=== PATIENT | male | born 1945 | race Caucasian/White ===

== ENCOUNTER 2018-06-13 23:00 | Inpatient (IN) | payer MEDICARE, OTHER, SELFPAY ==
[2018-06-13 23:11] VITALS: BMI 21.0
--- NOTE | 2018-06-13 23:12 | NURSING ---
Patient arrived on this unit via stretcher from [facility].
[2018-06-14] VITALS: BMI 25.8
[2018-06-14 00:02] VITALS: BP 143/75; PULSE 60; RESP 18; TEMP 37.1; O2SAT 93
[2018-06-14 03:55] VITALS: BP 125/76; PULSE 60
[2018-06-14] MEDS: levoFLOXacin 750 MG Tablet PO (03:55)
[2018-06-14] MEDS: Pantoprazole Sodium 40 MG Tablet PO (03:55)
[2018-06-14] MEDS: Metoprolol Tartrate 25 MG Tablet PO ×2 (03:55→17:39)
[2018-06-14] MEDS: Polyethylene Glycol 3350 17 GM PACKET PO (03:55)
[2018-06-14] MEDS: Amiodarone 200 MG Tablet PO (03:55)
[2018-06-14] MEDS: Clotrimazole 10 MG Troche MUCOUS MEM ×5 (03:56→20:12)
[2018-06-14 07:06] VITALS: PULSE 60; RESP 18; O2SAT 93
[2018-06-14 08:09] LABS: Absolute Lymphocyte Count 0.68 X10^3/ul (0.83-4.51); Absolute Neutrophil Count 6.2 X10^3/uL (2.0-7.7); Basophil# 0.04 X10^3/uL; Basophil% 0.5 % (0-1); Eosinophil# 0.25 X10^3/uL; Eosinophils% 2.9 % (0-5); Hematocrit 32.1 % (40-54); Hemoglobin 10.1 g/dl (13.0-16.5); Lymphocyte # 0.68 X10^3/ul (4.0); Lymphocyte % 7.9 % (19-41); Mean Corp Hgb Conc 31.5 g/gl (32-36); Mean Corpuscular Hgb 32.6 pg (27.0-32.0); Mean Corpuscular Volume 103.5 fL (80-94); Mean Platelet Vol. 10.7 fl (6.2-12.0); Monocyte# 1.44 X10^3/uL; Monocyte% 16.6 % (0-10); Neutrophil # 6.19 X10^3/uL (2.7-7.7); Neutrophil % 71.5 % (47-70); Platelet Count 194 K/mm3 (150-450); RBC Distribution Width CV 17.2 % (11.6-14.6); RBC Distribution Width SD 65.3 fl (35.1-43.9); White Blood Count 8.7 K/mm3 (4.4-11.0)
[2018-06-14 08:11] LABS: Differential Indicated SCAN CRITERIA MET; POSITIVE COUNT NO; POSITIVE DIFFERENTIAL NO; POSITIVE MORPHOLOGY YES
[2018-06-14 08:33] LABS: Anion Gap 8 (5-15); Anisocytosis 1+; BUN 28 mg/dL (7-18); BUN/Creat Ratio 20.7 RATIO (10-20); Calcium,Total 8.5 mg/dL (8.5-10.1); Chloride 104 mmol/L (98-107); Creatinine, Serum 1.35 mg/dL (0.70-1.30); EST Glomerular Filtration Rate 55 mL/min (>60); Est Glom Filt Rate - Afr Amer 66 mL/min (>60); Estimated Creatinine Clearance 44.88 ml/min; Glucose 104 mg/dL (74-106); Hypochromasia RARE; Macrocytosis 1+; Platelet Estimate ADEQUATE (ADEQ); Polychromasia RARE; Potassium 4.6 mmol/L (3.5-5.1); Sodium Level 139 mmol/L (136-145)
--- NOTE | 2018-06-14 10:35 | PCM.HP.STD ---
Problem List (1) Slurred speech Status: Acute (2) Vomiting Status: Acute (3) Gastrointestinal bleeding Status: Chronic (4) Left carotid artery stenosis Status: Chronic (5) Hypertension Status: Chronic (6) Hyperlipidemia Status: Chronic (7) Non-Hodgkin lymphoma Status: Chronic (8) AAA (abdominal aortic aneurysm) Status: Chronic (9) Osteoarthritis Status: Chronic (10) GERD (gastroesophageal reflux disease) Status: Chronic (11) Aortoiliac stenosis Status: Chronic (12) Atrial fibrillation Status: Chronic (13) Chronic kidney disease Status: Chronic (14) Anemia Status: Chronic (15) Encephalopathy Status: Acute (16) ICH (intracerebral hemorrhage) Status: Acute (17) SAH (subarachnoid hemorrhage) Status: Acute (18) IVH (intraventricular hemorrhage) Status: Acute History of Present Illness Date of Admission: 06/13/18 Chief Complaint: Here for rehabilitation, strengthening, prior to disposition determination. The patient is a 72 year old Male with below past medical history significant for peripheral arterial occlusive disease. Patient has history of atrial fibrillation and aortoiliac stenosis. He was on Eliquis and had adverse reaction of gastrointestinal bleeding. He was switched to Xarelto for anticoagulation. His stepsons found him with slurred, garbled speech, vomiting, presented to [facility], transferred to [facility]. He was diagnosed with left frontal intracranial hemorrhage with subarachnoid hemorrhage, intraventricular hemorrhage, mass effect. Change in mental status. EEG shows cortical dysfunction maximal left fronto-cortical region. Diffuse encephalopathy, negative for seizures. 06/06/2018 MRA neck mild left carotid stenosis. 06/07/2018 CT brain acute ICH, IVH, mild left to right midline shift. 06/07/2018 Echo LVSF normal. EF 63% Grade 1 diastolic dysfunction. 06/09/2018 Chest X-ray shows mild bilateral edema/infiltrates. No surgery or interventions performed. 06/13/2018 Admit to TCU with debility, here for rehabilitation, strengthening, prior to disposition determination. Past Medical History Past Medical History (Chronic Problems): Chronic Problems Gastrointestinal bleeding (Chronic) Left carotid artery stenosis (Chronic) Hypertension (Chronic) Hyperlipidemia (Chronic) Non-Hodgkin lymphoma (Chronic) AAA (abdominal aortic aneurysm) (Chronic) Osteoarthritis (Chronic) GERD (gastroesophageal reflux disease) (Chronic) Aortoiliac stenosis (Chronic) Atrial fibrillation (Chronic) Chronic kidney disease (Chronic) Anemia (Chronic) Allergies No Known Allergies Allergy (Verified 06/13/18 23:53) Surgical History: TURP - Radical prostatectomy, Ganglion cyst removal, Mediport placement, left lower extremity stent., - Lives: Alone Smoking Status: Current every day smoker Tobacco Use: Cigarettes Alcohol: Occasional - Daily glass of wine. Drugs: None - *Family History Maternal History Items: Hypertension, Renal Disease Paternal History Items: Hypertension, Stroke Sibling History Items: Hypertension Review of Systems Constitutional: Denies: Chills, Fever, Weight Change HEENT: Denies: Head Aches, Sinus Congestion, Sinus Drainage Cardiovascular: Denies: Chest Pain, Palpitations Respiratory: Denies: Cough, Shortness of breath at rest, Sputum production Gastrointestinal: Denies: Abdominal Pain, Nausea, Vomiting Genitourinary: Denies: Dysuria Musculoskeletal: Denies: Joint Pain, Joint Tenderness Skin: Denies: Rash, Wounds Neurological: Denies: Numbness, Tingling, Focal weakness Psychiatric: Denies: Anxiety, Depression, Homicidal Ideations, Suicidal Ideations Hematologic/ Lymphatic: Denies: Easy Bruising, Easy Bleeding VTE Information - Inpt Only VTE Present on Admission: No VTE Mechan Device Prophylaxis: Knee High MARGARITA Hose VTE Pharm Prophylaxis ordered?: No Reason prophylaxis not ordered:: Medical Contraindication Patient Problems: Active and Suspected Problems Slurred speech (Acute) Vomiting (Acute) Encephalopathy (Acute) ICH (intracerebral hemorrhage) (Acute) SAH (subarachnoid hemorrhage) (Acute) IVH (intraventricular hemorrhage) (Acute) - Physical Exam General: Alert, Oriented x3, Cooperative HEENT: Atraumatic, PERRLA, EOMI, Normocephalic Neck: Supple, No JVD, Negative Carotid Bruits Lungs: Clear to auscultation, Normal air movement Cardiovascular: Regular rate, No murmurs Abdomen: Bowel Sounds Present, Soft, Non Tender Extremities: No edema, Capillary Refill Less than 3 Seconds Skin: No rashes, No breakdown Musculoskeletal: No Tenderness to Palpation of Joints or Extremities Neurological: Cranial nerves II-XII grossly intact Psych/Mental Status: Normal Affect, Appropriate Vital Signs Temp Pulse Resp BP Pulse Ox 98.7 F 60 18 125/76 H 93 06/14/18 00:02 06/14/18 07:06 06/14/18 07:06 06/14/18 03:55 06/14/18 07:06 Oxygen Delivery Method Room Air Weight: 77 kg Body Mass Index (BMI) 25.8 Intake and Output for Last 24 Hours 06/12/18 06/13/18 06/14/18 23:59 23:59 23:59 Intake Total 440 / 440 Balance 440 / 440 Laboratory Tests Past 24 Hrs 06/14/18 06/14/18 07:47 07:47 WBC 8.7 RBC 3.10 L Hgb 10.1 L Hct 32.1 L MCV 103.5 H MCH 32.6 H MCHC 31.5 L RDW 17.2 H RDW Differential 65.3 H Plt Count 194 MPV 10.7 Immature Gran % (Auto) 0.600 Neut % (Auto) 71.5 H Lymph % (Auto) 7.9 L [place] % (Auto) 16.6 H Eos % (Auto) 2.9 Baso % (Auto) 0.5 Absolute Neuts (auto) 6.2 Absolute Lymphs (auto) 0.68 L Total Counted Not Reportable Platelet Estimate ADEQUATE Polychromasia RARE Hypochromasia RARE Anisocytosis 1+ Macrocytosis 1+ Sodium 139 Potassium 4.6 Chloride 104 Carbon Dioxide 27.0 Anion Gap 8 BUN 28 H Creatinine 1.35 H Estim Creat Clear Calc 44.88 Est GFR (MDRD) Af Amer 66 Est GFR (MDRD) Non-Af 55 L BUN/Creatinine Ratio 20.7 H Glucose 104 Calcium 8.5 Assessment/Plan All Active Problems Slurred speech (Acute) Vomiting (Acute) Encephalopathy (Acute) ICH (intracerebral hemorrhage) (Acute) SAH (subarachnoid hemorrhage) (Acute) IVH (intraventricular hemorrhage) (Acute) 72 year old male with below past medical history hospitalized for intracranial hemorrhage, subarachnoid hemorrhage, interventricular hemorrhage, admitted to TCU with debility, here for rehabilitation, strengthening, prior to disposition determination. Debility - PT/OT. Speech - ST. Pain - Tylenol 1000MG Q6H PRN mild pain. Bowel - Miralax 17GM daily, Senna/colace 1 tablet BID, Dulcolax 10MG daily PRN. Pneumonia vaccination - Administer Prevnar 13 and/or Pneumovax 23 as necessary. DVT prophylaxis - Contraindicated due to recent brain bleed. Atrial Fibrillation - Metoprolol 25MG BID, Amiodarone 200MG daily, Aspirin 81MG daily, systemic anticoagulation contraindicated due to brain bleed on DOAC. Hyperlipidemia - Increase Atorvastatin 40MG QHS, patient is a vasculopath. Thrush - Clotrimazole 10MG 5x/day thru 06/15/2018. Healthcare associated pneumonia - Levaquin 750MG daily thru 06/18/2018. Insomnia - Melatonin 3MG QHS. GERD - Pantoprazole 40MG daily. Skin - Silvadene 1% topical daily.
--- NOTE | 2018-06-14 10:43 | HP.PCM_ITS ---
Problem List (1) Slurred speech Status: Acute (2) Vomiting Status: Acute (3) Gastrointestinal bleeding Status: Chronic (4) Left carotid artery stenosis Status: Chronic (5) Hypertension Status: Chronic (6) Hyperlipidemia Status: Chronic (7) Non-Hodgkin lymphoma Status: Chronic (8) AAA (abdominal aortic aneurysm) Status: Chronic (9) Osteoarthritis Status: Chronic (10) GERD (gastroesophageal reflux disease) Status: Chronic (11) Aortoiliac stenosis Status: Chronic (12) Atrial fibrillation Status: Chronic (13) Chronic kidney disease Status: Chronic (14) Anemia Status: Chronic (15) Encephalopathy Status: Acute (16) ICH (intracerebral hemorrhage) Status: Acute (17) SAH (subarachnoid hemorrhage) Status: Acute (18) IVH (intraventricular hemorrhage) Status: Acute History of Present Illness Date of Admission: 06/13/18 Chief Complaint: Here for rehabilitation, strengthening, prior to disposition determination. The patient is a 72 year old Male with below past medical history significant for peripheral arterial occlusive disease. Patient has history of atrial fibrillation and aortoiliac stenosis. He was on Eliquis and had adverse reac tion of gastrointestinal bleeding. He was switched to Xarelto for anticoagulation. His stepsons found him with slurred, garbled speech, vomiting, presented to [facility], transferred to [facility]. He was diagnosed with left frontal intracranial hemorrhage with subarachnoid hemorrhage, intraventricular hemorrhage, mass effect. Change in mental status. EEG shows cortical dysfunction maximal left fronto-cortical region. Diffuse encephalopathy, negative for seizures. 06/06/2018 MRA neck mild left carotid stenosis. 06/07/2018 CT brain acute ICH, IVH, mild left to right midline shift. 06/07/2018 Echo LVSF normal. EF 63% Grade 1 diastolic dysfunction. 06/09/2018 Chest X-ray shows mild bilateral edema/infiltrates. No surgery or interventions performed. 06/13/2018 Admit to TCU with debility, here for rehabilitation, strengthening, prior to disposition determination. Past Medical History Past Medical History (Chronic Problems): Chronic Problems Gastrointestinal bleeding (Chronic) Left carotid artery stenosis (Chronic) Hypertension (Chronic) Hyperlipidemia (Chronic) Non-Hodgkin lymphoma (Chronic) AAA (abdominal aortic aneurysm) (Chronic) Osteoarthritis (Chronic) GERD (gastroesophageal reflux disease) (Chronic) Aortoiliac stenosis (Chronic) Atrial fibrillation (Chronic) Chronic kidney disease (Chronic) Anemia (Chronic) Allergies No Known Allergies Allergy (Verified 06/13/18 23:53) Surgical History: TURP - Radical prostatectomy, Ganglion cyst removal, Mediport placement, left lower extremity stent., - Lives: Alone Smoking Status: Current every day smoker Tobacco Use: Cigarettes Alcohol: Occasional - Daily glass of wine. Drugs: None - *Family History Maternal History Items: Hypertension, Renal Disease Paternal History Items: Hypertension, Stroke Sibling History Items: Hypertension Review of Systems Constitutional: Denies: Chills, Fever, Weight Change HEENT: Denies: Head Aches, Sinus Congestion, Sinus Drainage Cardiovascular: Denies: Chest Pain, Palpitations Respiratory: Denies: Cough, Shortness of breath at rest, Sputum production Gastrointestinal: Denies: Abdominal Pain, Nausea, Vomiting Genitourinary: Denies: Dysuria Musculoskeletal: Denies: Joint Pain, Joint Tenderness Skin: Denies: Rash, Wounds Neurological: Denies: Numbness, Tingling, Focal weakness Psychiatric: Denies: Anxiety, Depression, Homicidal Ideations, Suicidal Ideations Hematologic/ Lymphatic: Denies: Easy Bruising, Easy Bleeding VTE Information - Inpt Only VTE Present on Admission: No VTE Mechan Device Prophylaxis: Knee High MARGARITA Hose VTE Pharm Prophylaxis ordered?: No Reason prophylaxis not ordered:: Medical Contraindication Patient Problems: Active and Suspected Problems Slurred speech (Acute) Vomiting (Acute) Encephalopathy (Acute) ICH (intracerebral hemorrhage) (Acute) SAH (subarachnoid hemorrhage) (Acute) IVH (intraventricular hemorrhage) (Acute) - Physical Exam General: Alert, Oriented x3, Cooperative HEENT: Atraumatic, PERRLA, EOMI, Normocephalic Neck: Supple, No JVD, Negative Carotid Bruits Lungs: Clear to auscultation, Normal air movement Cardiovascular: Regular rate, No murmurs Abdomen: Bowel Sounds Present, Soft, Non Tender Extremities: No edema, Capillary Refill Less than 3 Seconds Skin: No rashes, No breakdown Musculoskeletal: No Tenderness to Palpation of Joints or Extremities Neurological: Cranial nerves II-XII grossly intact Psych/Mental Status: Normal Affect, Appropriate Vital Signs Temp Pulse Resp BP Pulse Ox 98.7 F 60 18 125/76 H 93 06/14/18 00:02 06/14/18 07:06 06/14/18 07:06 06/14/18 03:55 06/14/18 07:06 Oxygen Delivery Method Room Air Weight: 77 kg Body Mass Index (BMI) 25.8 Intake and Output for Last 24 Hours 06/12/18 06/13/18 06/14/18 23:59 23:59 23:59 Intake Total 440 / 440 Balance 440 / 440 Laboratory Tests Past 24 Hrs 06/14/18 06/14/18 07:47 07:47 WBC 8.7 RBC 3.10 L Hgb 10.1 L Hct 32.1 L MCV 103.5 H MCH 32.6 H MCHC 31.5 L RDW 17.2 H RDW Differential 65.3 H Plt Count 194 MPV 10.7 Immature Gran % (Auto) 0.600 Neut % (Auto) 71.5 H Lymph % (Auto) 7.9 L [place] % (Auto) 16.6 H Eos % (Auto) 2.9 Baso % (Auto) 0.5 Absolute Neuts (auto) 6.2 Absolute Lymphs (auto) 0.68 L Total Counted Not Reportable Platelet Estimate ADEQUATE Polychromasia RARE Hypochromasia RARE Anisocytosis 1+ Macrocytosis 1+ Sodium 139 Potassium 4.6 Chloride 104 Carbon Dioxide 27.0 Anion Gap 8 BUN 28 H Creatinine 1.35 H Estim Creat Clear Calc 44.88 Est GFR (MDRD) Af Amer 66 Est GFR (MDRD) Non-Af 55 L BUN/Creatinine Ratio 20.7 H Glucose 104 Calcium 8.5 Assessment/Plan All Active Problems Slurred speech (Acute) Vomiting (Acute) Encephalopathy (Acute) ICH (intracerebral hemorrhage) (Acute) SAH (subarachnoid hemorrhage) (Acute) IVH (intraventricular hemorrhage) (Acute) 72 year old male with below past medical history hospitalized for intracranial hemorrhage, subarachnoid hemorrhage, interventricular hemorrhage, admitted to TCU with debility, here for rehabilitation, strengthening, prior to disposition determination. * Debility - PT/OT. * Speech - ST. * Pain - Tylenol 1000MG Q6H PRN mild pain. * Bowel - Miralax 17GM daily, Senna/colace 1 tablet BID, Dulcolax 10MG daily PRN. * Pneumonia vaccination - Administer Prevnar 13 and/or Pneumovax 23 as necessary. * DVT prophylaxis - Contraindicated due to recent brain bleed. * Atrial Fibrillation - Metoprolol 25MG BID, Amiodarone 200MG daily, Aspirin 81MG daily, systemic anticoagulation contraindicated due to brain bleed on DOAC. * Hyperlipidemia - Increase Atorvastatin 40MG QHS, patient is a vasculopath. * Thrush - Clotrimazole 10MG 5x/day thru 06/15/2018. * Healthcare associated pneumonia - Levaquin 750MG daily thru 06/18/2018. * Insomnia - Melatonin 3MG QHS. * GERD - Pantoprazole 40MG daily. * Skin - Silvadene 1% topical daily.
[2018-06-14] MEDS: Aspirin 81 MG TAB.CHEW PO (11:25)
[2018-06-14] MEDS: Tuberculin,Purif.prot.deriv. 50 TU/ML Vial 5 ML ID (11:27)
--- NOTE | 2018-06-14 12:58 | NURSING ---
Pt pocketing foods and not swallowing effectively. Changed to puree diet d/t risk for aspiration. Speech therapy notified.
--- NOTE | 2018-06-14 13:00 | PCA ---
Patient was taking dentures out at lunch, and pocketing food while eating as well.. Karen MORALES notified
[2018-06-14 16:00] VITALS: BP 140/77; PULSE 54; RESP 18; TEMP 37.2; O2SAT 95
[2018-06-14 17:39] VITALS: BP 140/77; PULSE 54
[2018-06-14] MEDS: Senna/Docusate Sodium 1 Tablet PO (17:43)
[2018-06-14] MEDS: MELATONIN 3 MG TABLET PO (20:12)
[2018-06-14] MEDS: Atorvastatin Calcium 40 MG Tablet PO (20:12)
--- NOTE | 2018-06-14 21:16 | NURSING ---
Pt agitated, becoming increasingly inappropriate towards staff, requiring constant 1:1. Swung fist at this nurses stomach and yelled 'BOOM!', when asked 'whats up [place]?' by PARTNER MANAGER pt responded 'my hopes and my ana m' and later when asked what he liked to do with friends pt said 'piss on them'. Continues to try and stand/ambulate by self without asking or allowing staff assistance. RN aware, continuing to monitor closely at nurses station.
--- NOTE | 2018-06-14 21:45 | NURSING ---
Pt remains restless at nurse's station with 1:1 supervision and emotional support. Dr Junior notified. N.O. for Ativan 0.5 mg daily PRN. Will continue to monitor.
[2018-06-14] MEDS: LORazepam 0.5 MG Tablet PO (22:16)
--- NOTE | 2018-06-15 00:29 | NURSING ---
Pt assisted into bed with assist x 3, bed exit alarm present. Pt repositioned and appears comfortable. Continuing to monitor.
[2018-06-15] MEDS: Senna/Docusate Sodium 1 Tablet PO ×2 (06:40→18:07)
[2018-06-15] MEDS: Polyethylene Glycol 3350 17 GM PACKET PO (06:40)
[2018-06-15 06:41] VITALS: PULSE 66
[2018-06-15] MEDS: Clotrimazole 10 MG Troche MUCOUS MEM ×4 (06:41→18:08)
[2018-06-15] MEDS: Amiodarone 200 MG Tablet PO (06:41)
[2018-06-15] MEDS: Metoprolol Tartrate 25 MG Tablet PO ×2 (06:41→18:08)
[2018-06-15] MEDS: Pantoprazole Sodium 40 MG Tablet PO (06:42)
[2018-06-15] MEDS: Aspirin 81 MG TAB.CHEW PO (08:34)
[2018-06-15 16:00] VITALS: BP 143/73; PULSE 54; RESP 18; TEMP 36.9; O2SAT 94
[2018-06-15 18:08] VITALS: BP 143/73; PULSE 54
[2018-06-15 20:00] VITALS: PULSE 78; RESP 18; O2SAT 94
[2018-06-15] MEDS: Atorvastatin Calcium 40 MG Tablet PO (20:03)
[2018-06-15] MEDS: MELATONIN 3 MG TABLET PO (20:03)
[2018-06-15] MEDS: LORazepam 0.5 MG Tablet PO (20:03)
[2018-06-16 05:41] VITALS: PULSE 78
[2018-06-16] MEDS: Polyethylene Glycol 3350 17 GM PACKET PO (05:41)
[2018-06-16] MEDS: Metoprolol Tartrate 25 MG Tablet PO ×2 (05:41→17:12)
[2018-06-16] MEDS: levoFLOXacin 750 MG Tablet PO (05:41)
[2018-06-16] MEDS: Pantoprazole Sodium 40 MG Tablet PO (05:41)
[2018-06-16] MEDS: Amiodarone 200 MG Tablet PO (05:41)
[2018-06-16] MEDS: Senna/Docusate Sodium 1 Tablet PO ×2 (05:41→17:13)
[2018-06-16] MEDS: Aspirin 81 MG TAB.CHEW PO (07:54)
--- NOTE | 2018-06-16 14:30 | PHA.CONS_ITS ---
<Cristiano Cody D - Last Filed: 06/16/18 14:24> Progress Note - Pharmacy Subjective: TCU Admission Objective: Allergies No Known Allergies Allergy (Verified 06/13/18 23:53) Current Medications Generic Name Dose Route Start Last Admin Trade Name Freq PRN Reason Stop Dose Admin Acetaminophen 1,000 mg 06/14/18 10:58 Tylenol PO Q6H PRN MILD PAIN (1-3/10) Amiodarone HCl 200 mg 06/14/18 06:00 06/16/18 05:41 Cordarone PO 200 mg DAILY JENNA Administration Aspirin 81 mg 06/14/18 08:00 06/16/18 07:54 Aspirin, Baby PO 81 mg DAILY@0800 JENNA Administration Atorvastatin Calcium 40 mg 06/14/18 22:00 06/15/18 20:03 Lipitor PO 40 mg HS JENNA Administration Bisacodyl 10 mg 06/14/18 10:59 Dulcolax PO DAILY PRN Constipation Heparin Sodium (Beef Lung) 50 units 06/14/18 01:05 IV UD PRN HEPARIN FLUSH Levofloxacin 750 mg 06/14/18 06:00 06/16/18 05:41 Levaquin Tablet PO 06/18/18 06:01 750 mg Q48@0600 JENNA Administration Lorazepam 0.5 mg 06/14/18 21:16 06/15/18 20:03 Ativan PO 0.5 mg DAILY PRN PRN Administration AGITATION Melatonin 3 mg 06/14/18 22:00 06/15/18 20:03 Melatonin PO 3 mg QHS JENNA Administration Metoprolol Tartrate 25 mg 06/14/18 06:00 06/16/18 05:41 Lopressor (Beta Kristen) PO 25 mg BID JENNA Administration Pantoprazole Sodium 40 mg 06/14/18 06:00 06/16/18 05:41 Protonix PO 40 mg DAILY JENNA Administration Polyethylene Glycol 17 gm 06/14/18 06:00 06/16/18 05:41 Miralax PO 17 gm DAILY JENNA Administration Senna/Docusate Sodium 1 tablet 06/14/18 18:00 06/16/18 05:41 Senokot-S, Kimmy-Colace PO 1 tablet BID JENNA Administration Silver Sulfadiazine 1 applic 06/14/18 06:00 06/16/18 05:41 Silvadene (Bkc) TOPICAL 06/28/18 06:01 Not Given DAILY JENNA Protocol Sodium Chloride 5 - 15 ml 06/14/18 01:05 IV UD PRN SALINE FLUSH Sodium Chloride 10 ml 06/14/18 01:05 IV UD PRN R PORT FLUSH Tuberculin PPD 5 tu 06/21/18 10:00 Tubersol, Aplisol, Ppd ID 06/21/18 10:01 X1 ONE Problem List Slurred speech (Acute) Vomiting (Acute) Gastrointestinal bleeding (Chronic) Left carotid artery stenosis (Chronic) Hypertension (Chronic) Hyperlipidemia (Chronic) Non-Hodgkin lymphoma (Chronic) AAA (abdominal aortic aneurysm) (Chronic) Osteoarthritis (Chronic) GERD (gastroesophageal reflux disease) (Chronic) Aortoiliac stenosis (Chronic) Atrial fibrillation (Chronic) Chronic kidney disease (Chronic) Anemia (Chronic) Encephalopathy (Acute) ICH (intracerebral hemorrhage) (Acute) SAH (subarachnoid hemorrhage) (Acute) IVH (intraventricular hemorrhage) (Acute) Vital Signs Temp Pulse Resp BP Pulse Ox 98.5 F 78 18 143/73 H 94 06/15/18 16:00 06/16/18 05:41 06/15/18 20:00 06/15/18 18:08 06/15/18 20:00 Oxygen Delivery Method Room Air Weight: 77 kg Body Mass Index (BMI) 25.8 Sodium 139 mmol/L (136-145) 06/14/18 07:47 Potassium 4.6 mmol/L (3.5-5.1) 06/14/18 07:47 Chloride 104 mmol/L (98-107) 06/14/18 07:47 Carbon Dioxide 27.0 mmol/L (21.0-32.0) 06/14/18 07:47 Anion Gap 8 (5-15) 06/14/18 07:47 BUN 28 mg/dL (7-18) H 06/14/18 07:47 Creatinine 1.35 mg/dL (0.70-1.30) H 06/14/18 07:47 Est GFR (MDRD) Af Amer 66 mL/min (>60) 06/14/18 07:47 Est GFR (MDRD) Non-Af 55 mL/min (>60) L 06/14/18 07:47 BUN/Creatinine Ratio 20.7 RATIO (10-20) H 06/14/18 07:47 Glucose 104 mg/dL (74-106) 06/14/18 07:47 Assessment/Plan: 1) Pain APAP for mild pain. Continue to monitor prn medication use, daily pain scores. 2) Afib Amiodarone, metoprolol, ASA. Continue to monitor BP/HR. 3) HLD Atorvastatin at HS. Continue to monitor lipids. 4) ID Levofloxacin until 06/18, renally adjusted. Continue to monitor s/s infection. 5) GI Pantoprazole daily. Continue to monitor for GI distress. 6) Insomnia Melatonin at HS for sleep. Continue to monitor for insomnia. Psychotropic Medications: * 7) Agitation Lorazepam prn. Patient receives nightly around bedtime, consider scheduling or clarify if it's being used for sleep. Continue to monitor prn medication use, for agitation. Unnecessary Medications: Bowel Regimen: 8) Senna/s, PEG, prn bisacodyl. Continue to monitor prn medication use, for constipation/diarrhea. Date of Note:: 06/16/18 - Provider Comments Provider responsibility: Provider responsible to enter orders to implement recommendations <Butch Junior Chi - Last Filed: 06/16/18 18:03> Progress Note - Pharmacy Subjective: [] Objective: Allergies No Known Allergies Allergy (Verified 06/13/18 23:53) Current Medications Generic Name Dose Route Start Last Admin Trade Name Freq PRN Reason Stop Dose Admin Acetaminophen 1,000 mg 06/14/18 10:58 Tylenol PO Q6H PRN MILD PAIN (1-3/10) Amiodarone HCl 200 mg 06/14/18 06:00 06/16/18 05:41 Cordarone PO 200 mg DAILY JENNA Administration Aspirin 81 mg 06/14/18 08:00 06/16/18 07:54 Aspirin, Baby PO 81 mg DAILY@0800 JENNA Administration Atorvastatin Calcium 40 mg 06/14/18 22:00 06/15/18 20:03 Lipitor PO 40 mg HS JENNA Administration Bisacodyl 10 mg 06/14/18 10:59 Dulcolax PO DAILY PRN Constipation Heparin Sodium (Beef Lung) 50 units 06/14/18 01:05 IV UD PRN HEPARIN FLUSH Levofloxacin 750 mg 06/14/18 06:00 06/16/18 05:41 Levaquin Tablet PO 06/18/18 06:01 750 mg Q48@0600 JENNA Administration Lorazepam 0.5 mg 06/14/18 21:16 06/15/18 20:03 Ativan PO 0.5 mg DAILY PRN PRN Administration AGITATION Melatonin 3 mg 06/14/18 22:00 06/15/18 20:03 Melatonin PO 3 mg QHS JENNA Administration Metoprolol Tartrate 25 mg 06/14/18 06:00 06/16/18 17:12 Lopressor (Beta Kristen) PO 25 mg BID JENNA Administration Pantoprazole Sodium 40 mg 06/14/18 06:00 06/16/18 05:41 Protonix PO 40 mg DAILY JENNA Administration Polyethylene Glycol 17 gm 06/14/18 06:00 06/16/18 05:41 Miralax PO 17 gm DAILY JENNA Administration Senna/Docusate Sodium 1 tablet 06/14/18 18:00 06/16/18 17:13 Senokot-S, Kimmy-Colace PO 1 tablet BID JENNA Administration Silver Sulfadiazine 1 applic 06/14/18 06:00 06/16/18 05:41 Silvadene (Bkc) TOPICAL 06/28/18 06:01 Not Given DAILY [facility] Protocol Sodium Chloride 5 - 15 ml 06/14/18 01:05 IV UD PRN SALINE FLUSH Sodium Chloride 10 ml 06/14/18 01:05 IV UD PRN R PORT FLUSH Tuberculin PPD 5 tu 06/21/18 10:00 Tubersol, Aplisol, Ppd ID 06/21/18 10:01 X1 ONE Problem List Slurred speech (Acute) Vomiting (Acute) Gastrointestinal bleeding (Chronic) Left carotid artery stenosis (Chronic) Hypertension (Chronic) Hyperlipidemia (Chronic) Non-Hodgkin lymphoma (Chronic) AAA (abdominal aortic aneurysm) (Chronic) Osteoarthritis (Chronic) GERD (gastroesophageal reflux disease) (Chronic) Aortoiliac stenosis (Chronic) Atrial fibrillation (Chronic) Chronic kidney disease (Chronic) Anemia (Chronic) Encephalopathy (Acute) ICH (intracerebral hemorrhage) (Acute) SAH (subarachnoid hemorrhage) (Acute) IVH (intraventricular hemorrhage) (Acute) Vital Signs Temp Pulse Resp BP Pulse Ox 97.1 F L 55 L 16 123/54 H 93 06/16/18 15:34 06/16/18 17:12 06/16/18 15:34 06/16/18 17:12 06/16/18 15:34 Oxygen Delivery Method Room Air Weight: 77 kg Body Mass Index (BMI) 25.8 Sodium 139 mmol/L (136-145) 06/14/18 07:47 Potassium 4.6 mmol/L (3.5-5.1) 06/14/18 07:47 Chloride 104 mmol/L (98-107) 06/14/18 07:47 Carbon Dioxide 27.0 mmol/L (21.0-32.0) 06/14/18 07:47 Anion Gap 8 (5-15) 06/14/18 07:47 BUN 28 mg/dL (7-18) H 06/14/18 07:47 Creatinine 1.35 mg/dL (0.70-1.30) H 06/14/18 07:47 Est GFR (MDRD) Af Amer 66 mL/min (>60) 06/14/18 07:47 Est GFR (MDRD) Non-Af 55 mL/min (>60) L 06/14/18 07:47 BUN/Creatinine Ratio 20.7 RATIO (10-20) H 06/14/18 07:47 Glucose 104 mg/dL (74-106) 06/14/18 07:47 Assessment/Plan: Psychotropic Medications: Unnecessary Medications: Bowel Regimen: - Provider Comments Provider responsibility: Provider responsible to enter orders to implement recommendations Provider Comments to Recommendations by Pharmacy: Agree
[2018-06-16 15:34] VITALS: BP 123/54; PULSE 55; RESP 16; TEMP 36.2; O2SAT 93
[2018-06-16 17:12] VITALS: BP 123/54; PULSE 55
[2018-06-16 21:00] VITALS: PULSE 58; RESP 17; O2SAT 96
[2018-06-16] MEDS: MELATONIN 3 MG TABLET PO (21:07)
[2018-06-16] MEDS: Atorvastatin Calcium 40 MG Tablet PO (21:07)
[2018-06-17 04:50] VITALS: BP 163/82; PULSE 70
[2018-06-17] MEDS: Amiodarone 200 MG Tablet PO (04:50)
[2018-06-17] MEDS: Senna/Docusate Sodium 1 Tablet PO ×2 (04:50→17:17)
[2018-06-17] MEDS: Pantoprazole Sodium 40 MG Tablet PO (04:50)
[2018-06-17] MEDS: Metoprolol Tartrate 25 MG Tablet PO ×2 (04:50→17:17)
[2018-06-17] MEDS: Polyethylene Glycol 3350 17 GM PACKET PO (04:50)
[2018-06-17 06:30] VITALS: PULSE 70; RESP 16; O2SAT 95
[2018-06-17] MEDS: Aspirin 81 MG TAB.CHEW PO (09:19)
[2018-06-17 15:55] VITALS: BP 144/71; PULSE 60; RESP 18; TEMP 37.1; O2SAT 96
[2018-06-17 17:17] VITALS: BP 144/71; PULSE 60
[2018-06-17] MEDS: Atorvastatin Calcium 40 MG Tablet PO (20:50)
[2018-06-17] MEDS: MELATONIN 3 MG TABLET PO (20:51)
[2018-06-18 04:56] VITALS: BP 158/80; PULSE 62
[2018-06-18] MEDS: Metoprolol Tartrate 25 MG Tablet PO ×2 (04:56→16:51)
[2018-06-18] MEDS: Amiodarone 200 MG Tablet PO (04:56)
[2018-06-18] MEDS: levoFLOXacin 750 MG Tablet PO (04:56)
[2018-06-18] MEDS: Senna/Docusate Sodium 1 Tablet PO ×2 (04:57→16:52)
[2018-06-18] MEDS: Polyethylene Glycol 3350 17 GM PACKET PO (04:57)
[2018-06-18] MEDS: Pantoprazole Sodium 40 MG Tablet PO (04:57)
[2018-06-18] MEDS: Aspirin 81 MG TAB.CHEW PO (08:31)
--- NOTE | 2018-06-18 10:02 | CASEMGMT ---
Plan of care meeting held. Resident present as well as resident family. No discharge date set at this time. Resident to continue with further care and treatment on the Transitional Care Unit. Team currently recommending for resident to have 24hr care at time of discharge whether that would be in the home or in a facility. Resident family unsure of discharge plan at this time. This older adult social work specialist providing resident family with list of private duty aides, medical alert list and of assisted living/fdc home. Support given. Will continue to follow. COLETTE Hood
[2018-06-18 16:00] VITALS: BP 146/90; PULSE 60; RESP 18; TEMP 36.5; O2SAT 98
[2018-06-18 16:51] VITALS: PULSE 60
[2018-06-18 20:00] VITALS: PULSE 74; RESP 18; O2SAT 94
[2018-06-18] MEDS: MELATONIN 3 MG TABLET PO (20:18)
[2018-06-18] MEDS: Atorvastatin Calcium 40 MG Tablet PO (20:18)
[2018-06-19 05:07] VITALS: BP 143/77; PULSE 74
[2018-06-19] MEDS: Senna/Docusate Sodium 1 Tablet PO ×2 (05:07→16:55)
[2018-06-19] MEDS: Pantoprazole Sodium 40 MG Tablet PO (05:07)
[2018-06-19] MEDS: Metoprolol Tartrate 25 MG Tablet PO ×2 (05:07→16:55)
[2018-06-19] MEDS: Amiodarone 200 MG Tablet PO (05:09)
[2018-06-19] MEDS: Polyethylene Glycol 3350 17 GM PACKET PO (05:09)
[2018-06-19] MEDS: Aspirin 81 MG TAB.CHEW PO (08:01)
[2018-06-19 10:00] VITALS: PULSE 63; RESP 16; O2SAT 95
[2018-06-19] MEDS: LORazepam 0.5 MG Tablet PO (16:54)
[2018-06-19 16:55] VITALS: BP 140/70; PULSE 62
[2018-06-19] MEDS: MELATONIN 3 MG TABLET PO (20:58)
[2018-06-19] MEDS: Atorvastatin Calcium 40 MG Tablet PO (20:58)
[2018-06-19] MEDS: Menthol/Lanolin/Calamine/Znox 113 GM Tube 1 APPLIC TOPICAL (20:59)
[2018-06-20 05:24] VITALS: PULSE 63
[2018-06-20] MEDS: Metoprolol Tartrate 25 MG Tablet PO ×2 (05:24→17:05)
[2018-06-20] MEDS: Pantoprazole Sodium 40 MG Tablet PO (05:25)
[2018-06-20] MEDS: Amiodarone 200 MG Tablet PO (05:25)
[2018-06-20] MEDS: Senna/Docusate Sodium 1 Tablet PO ×2 (05:25→17:06)
[2018-06-20] MEDS: Polyethylene Glycol 3350 17 GM PACKET PO (05:30)
[2018-06-20] MEDS: Menthol/Lanolin/Calamine/Znox 113 GM Tube 1 APPLIC TOPICAL ×2 (05:30→20:55)
[2018-06-20] MEDS: Bisacodyl 5 MG Tablet 10 MG PO (07:58)
[2018-06-20] MEDS: Aspirin 81 MG TAB.CHEW PO (07:58)
--- NOTE | 2018-06-20 12:40 | CASEMGMT ---
Addendum entered by Malorie Valdovinos 06/20/18 14:12: Reviewed and approved social work student MDS documentation. COLETTE Hood Original Note: Brief interview for mental status (BIMS) and mood (PHQ-9) completed on this day. BIMS score 11/15. PHQ-9 score 06/29. Nayeli Paredes social work student
[2018-06-20 16:00] VITALS: BP 145/67; PULSE 60; RESP 20; TEMP 36.8; O2SAT 97
[2018-06-20 17:05] VITALS: BP 145/67; PULSE 60
[2018-06-20] MEDS: LORazepam 0.5 MG Tablet PO (17:56)
--- NOTE | 2018-06-20 18:23 | NURSING ---
NO for soap suds enema x1
[2018-06-20] MEDS: Magnesium Citrate 300 ML PO (20:33)
[2018-06-20] MEDS: MELATONIN 3 MG TABLET PO (20:56)
[2018-06-20] MEDS: Atorvastatin Calcium 40 MG Tablet PO (20:56)
--- NOTE | 2018-06-21 01:02 | NURSING ---
NO for soap suds enema x1 d/c'd and change to mag citrate x1. Order administered as ordered pt took all of it without any concerns during this time.
[2018-06-21] MEDS: Pantoprazole Sodium 40 MG Tablet PO (06:41)
[2018-06-21] MEDS: Amiodarone 200 MG Tablet PO (06:41)
[2018-06-21 06:42] VITALS: PULSE 62
[2018-06-21] MEDS: Metoprolol Tartrate 25 MG Tablet PO ×2 (06:42→16:48)
[2018-06-21] MEDS: Menthol/Lanolin/Calamine/Znox 113 GM Tube 1 APPLIC TOPICAL ×2 (06:43→20:54)
[2018-06-21 06:57] LABS: Absolute Lymphocyte Count 0.93 X10^3/ul (0.83-4.51); Absolute Neutrophil Count 3.1 X10^3/uL (2.0-7.7); Basophil# 0.09 X10^3/uL; Basophil% 1.7 % (0-1); Eosinophil# 0.15 X10^3/uL; Eosinophils% 2.8 % (0-5); Hematocrit 38.8 % (40-54); Hemoglobin 12.6 g/dl (13.0-16.5); Lymphocyte # 0.93 X10^3/ul (4.0); Lymphocyte % 17.1 % (19-41); Mean Corp Hgb Conc 32.5 g/gl (32-36); Mean Corpuscular Hgb 33.8 pg (27.0-32.0); Monocyte# 1.17 X10^3/uL; Monocyte% 21.5 % (0-10); Neutrophil # 3.09 X10^3/uL (2.7-7.7); Neutrophil % 56.5 % (47-70); POSITIVE COUNT NO; POSITIVE DIFFERENTIAL NO; POSITIVE MORPHOLOGY NO; Platelet Count 293 K/mm3 (150-450); RBC Distribution Width CV 15.3 % (11.6-14.6); RBC Distribution Width SD 55.1 fl (35.1-43.9); Red Blood Count 3.73 M/mm3 (4.6-6.2); White Blood Count 5.5 K/mm3 (4.4-11.0)
[2018-06-21 07:09] LABS: Anion Gap 8 (5-15); BUN 35 mg/dL (7-18); BUN/Creat Ratio 16.1 RATIO (10-20); Chloride 105 mmol/L (98-107); Creatinine, Serum 2.18 mg/dL (0.70-1.30); EST Glomerular Filtration Rate 32 mL/min (>60); Est Glom Filt Rate - Afr Amer 38 mL/min (>60); Estimated Creatinine Clearance 26.43 ml/min; Glucose 120 mg/dL (74-106); Sodium Level 139 mmol/L (136-145)
[2018-06-21] MEDS: Aspirin 81 MG TAB.CHEW PO (07:55)
[2018-06-21] MEDS: Tuberculin,Purif.prot.deriv. 50 TU/ML Vial 5 ML ID (11:17)
[2018-06-21] MEDS: 0.9% Normal Saline 1,000 ML 60 ML IV (13:09)
--- NOTE | 2018-06-21 13:23 | NURSING ---
Dr Junior reviewed labs, new order for normal saline @ 60cc/hr.
[2018-06-21 15:31] VITALS: BP 121/99; PULSE 55; RESP 16; TEMP 36.3; O2SAT 95
[2018-06-21 16:48] VITALS: BP 121/99; PULSE 62
[2018-06-21] MEDS: Senna/Docusate Sodium 1 Tablet PO (16:48)
[2018-06-21] MEDS: Atorvastatin Calcium 40 MG Tablet PO (20:47)
[2018-06-21] MEDS: MELATONIN 3 MG TABLET PO (20:47)
[2018-06-21 21:00] VITALS: PULSE 55; RESP 18; O2SAT 97
[2018-06-22] MEDS: Menthol/Lanolin/Calamine/Znox 113 GM Tube 1 APPLIC TOPICAL ×2 (05:42→19:57)
[2018-06-22] MEDS: Senna/Docusate Sodium 1 Tablet PO ×2 (05:43→16:52)
[2018-06-22] MEDS: Polyethylene Glycol 3350 17 GM PACKET PO (05:43)
[2018-06-22 05:44] VITALS: BP 128/71; PULSE 56
[2018-06-22] MEDS: Metoprolol Tartrate 25 MG Tablet PO ×2 (05:44→16:52)
[2018-06-22] MEDS: Amiodarone 200 MG Tablet PO (05:44)
[2018-06-22] MEDS: Pantoprazole Sodium 40 MG Tablet PO (05:44)
[2018-06-22] MEDS: 0.9% Normal Saline 1,000 ML 60 ML IV (05:59)
[2018-06-22 06:30] VITALS: PULSE 56; RESP 16; O2SAT 95
[2018-06-22 06:59] LABS: Anion Gap 8 (5-15); BUN 34 mg/dL (7-18); BUN/Creat Ratio 17.4 RATIO (10-20); Calcium,Total 8.5 mg/dL (8.5-10.1); Chloride 106 mmol/L (98-107); Creatinine, Serum 1.95 mg/dL (0.70-1.30); EST Glomerular Filtration Rate 36 mL/min (>60); Est Glom Filt Rate - Afr Amer 43 mL/min (>60); Estimated Creatinine Clearance 29.55 ml/min; Glucose 85 mg/dL (74-106); Potassium 4.9 mmol/L (3.5-5.1); Sodium Level 141 mmol/L (136-145)
[2018-06-22] MEDS: Aspirin 81 MG TAB.CHEW PO (08:06)
--- NOTE | 2018-06-22 12:55 | NURSING ---
Addendum entered by Isa Sánchez 06/22/18 13:53: Dr Junior updated, new order to DC IVF and encourage PO fluids Original Note: This nurse was notified by lens grinding machine operator that Pt IV was leaking. This nurse observed Pt IV catheter pulled out and Pt had disconnected the IV line. Catheter intact. Isa MORALES aware
[2018-06-22 15:22] VITALS: BP 132/91; PULSE 52; RESP 16; TEMP 36.5; O2SAT 95
[2018-06-22 16:52] VITALS: BP 132/91; PULSE 52
[2018-06-22] MEDS: MELATONIN 3 MG TABLET PO (19:57)
[2018-06-22] MEDS: Atorvastatin Calcium 40 MG Tablet PO (19:58)
[2018-06-23] MEDS: Menthol/Lanolin/Calamine/Znox 113 GM Tube 1 APPLIC TOPICAL ×2 (05:28→20:18)
[2018-06-23 05:29] VITALS: BP 139/71; PULSE 56
[2018-06-23] MEDS: Metoprolol Tartrate 25 MG Tablet PO ×2 (05:29→18:17)
[2018-06-23] MEDS: Amiodarone 200 MG Tablet PO (05:29)
[2018-06-23] MEDS: Senna/Docusate Sodium 1 Tablet PO ×2 (05:29→18:16)
[2018-06-23] MEDS: Polyethylene Glycol 3350 17 GM PACKET PO (05:29)
[2018-06-23] MEDS: Pantoprazole Sodium 40 MG Tablet PO (05:29)
[2018-06-23] MEDS: Aspirin 81 MG TAB.CHEW PO (07:50)
[2018-06-23 14:53] VITALS: PULSE 56; RESP 16; O2SAT 96
[2018-06-23 15:31] VITALS: BP 139/65; PULSE 55; RESP 18; TEMP 36.2; O2SAT 98
[2018-06-23] MEDS: LORazepam 0.5 MG Tablet PO (16:29)
--- NOTE | 2018-06-23 17:17 | NURSING ---
THIS NURSE HEARD ALARM GOING OFF, CAME OUT OF ROOM AND PT WAS AT THE ELEVATORS WAITING TO GET ON. ASKED PT WHERE HE WAS GOING PT STATED HE WAS GOING HOME. DOORS OPENED AND PT TRIED TO GET ON. THIS NURSE HELD ON TO PT GAIT BELT AND ANA CAME OUT AND WALKED PT DOWN GREEN AND THEN TRYED TO GET OUT DOUBLE DOORS. PT WALKED INTO DINING AREA AND SAT DOWN. PT REFUSING TO GO BACK TO ROOM. ANA CALLED SECURITY. REPORTED TO CARMEN GONSALVES
[2018-06-23 18:17] VITALS: BP 139/65; PULSE 58
[2018-06-23 18:20] VITALS: PULSE 58
[2018-06-23] MEDS: Atorvastatin Calcium 40 MG Tablet PO (20:13)
[2018-06-23] MEDS: MELATONIN 3 MG TABLET PO (20:14)
[2018-06-24] MEDS: Menthol/Lanolin/Calamine/Znox 113 GM Tube 1 APPLIC TOPICAL ×2 (05:44→20:33)
[2018-06-24] MEDS: Polyethylene Glycol 3350 17 GM PACKET PO (05:44)
[2018-06-24] MEDS: Pantoprazole Sodium 40 MG Tablet PO (05:44)
[2018-06-24] MEDS: Bisacodyl 5 MG Tablet 10 MG PO (05:46)
[2018-06-24] MEDS: Amiodarone 200 MG Tablet PO (05:46)
[2018-06-24] MEDS: Senna/Docusate Sodium 1 Tablet PO ×2 (05:47→17:41)
[2018-06-24 05:50] VITALS: BP 142/79; PULSE 55; RESP 16
[2018-06-24 08:13] VITALS: BP 139/79; PULSE 61
[2018-06-24] MEDS: Aspirin 81 MG TAB.CHEW PO (08:13)
[2018-06-24] MEDS: Metoprolol Tartrate 25 MG Tablet PO ×2 (08:13→17:41)
[2018-06-24 08:14] VITALS: BP 139/79; PULSE 61
--- NOTE | 2018-06-24 09:53 | CPS ---
MANAGER ANALYSIS called, RT responded EAC billed
--- NOTE | 2018-06-24 10:49 | NURSING ---
Addendum entered by Karen Hogan 06/24/18 15:21: correction: PACKAGE SORTER and METHODS ANALYST DATA PROCESSING, not HUMAN CAPITAL CONSULTANT. Original Note: Pt found unresponsive in main room near nurses station by HUMAN CAPITAL CONSULTANT and PACKAGE SORTER. Leaning to one side and not responding verbally, eyes fixated. SOIL FERTILITY EXTENSION SPECIALIST called. BP 153/90, 88, rr 8, 74% RA. Oxygen applied via NRB. Patient had large emesis and began to become more responsive. suctioned by RT. Patient became more alert and responsive to verbal stimuli. Vitals 152/98, 58, 16, 99% on NRB. IV inserted into LAC. Patient monitored, continued to stay alert and oxygen saturations maintained. Dr. Junior updated, NO for CXR tomorrow morning and to continue to monitor patient. Patient's POAEliecer, updated.
[2018-06-24] MEDS: LORazepam 0.5 MG Tablet PO (15:39)
[2018-06-24 15:58] VITALS: BP 150/80; PULSE 59; RESP 18; TEMP 36.9; O2SAT 94
[2018-06-24 17:41] VITALS: BP 150/80; PULSE 59
[2018-06-24 19:45] VITALS: PULSE 74; RESP 18; O2SAT 94
[2018-06-24] MEDS: MELATONIN 3 MG TABLET PO (20:33)
[2018-06-24] MEDS: Atorvastatin Calcium 40 MG Tablet PO (20:33)
[2018-06-25 05:20] VITALS: PULSE 64
[2018-06-25] MEDS: Menthol/Lanolin/Calamine/Znox 113 GM Tube 1 APPLIC TOPICAL ×2 (05:20→20:25)
[2018-06-25] MEDS: Senna/Docusate Sodium 1 Tablet PO ×2 (05:20→18:09)
[2018-06-25] MEDS: Pantoprazole Sodium 40 MG Tablet PO (05:20)
[2018-06-25] MEDS: Metoprolol Tartrate 25 MG Tablet PO ×2 (05:20→18:29)
[2018-06-25] MEDS: Amiodarone 200 MG Tablet PO (05:20)
[2018-06-25] MEDS: Polyethylene Glycol 3350 17 GM PACKET PO (05:20)
--- NOTE | 2018-06-25 06:00 | RAD_ITS ---
HISTORY: COUGHRRT YESTERDAY WITH EMESIS, R/O ASPIRATION EXAM:XR Chest 2 Views: COMPARISON: None FINDINGS: Left lower lobe asymmetric infiltrate compatible with pneumonia. Normal heart size. Small calcified pleural plaques are suggested at the mid left hemithorax. Probable background emphysema. Right jugular Port-A-Cath in place with the catheter tip in the region of the superior vena cava. No pneumothorax. Atherosclerotic thoracic aorta. Senescent changes of the dorsal spine. RAD/Chest PA and Lateral IMPRESSION: 1. Left lower lobe infiltrate compatible with pneumonia. Infiltrate should be followed to radiographic resolution. 2. Probable background emphysema. at 0719 Reported and signed by: Seng Noyola MD Electronically Signed: Seng Noyola, at 7:18 EST Tel , Service support ,
--- NOTE | 2018-06-25 08:33 | NURSING ---
Dr. Junior reviewed CXR, NO for cefdinir 300mg PO l90etmtz x 3 days
[2018-06-25] MEDS: Aspirin 81 MG TAB.CHEW PO (09:07)
[2018-06-25] MEDS: Cefdinir 300 MG Capsule PO ×2 (10:42→18:09)
[2018-06-25 15:13] VITALS: BP 141/76; PULSE 54; RESP 16; TEMP 36.8; O2SAT 95
--- NOTE | 2018-06-25 16:25 | CHAPLAIN ---
Type of Pastoral Visit _x__ Initial Visit ___ Follow-up Visit ___ On-call Visit ___ General Patient Visit ___ Spiritual Assessment ___ Family Conference ___ Bereavement ___ Rapid Response ___ Code Blue ___ Other (describe below) Pastoral Care Referral From ___ Patient ___ Family ___ Nurse ___ Physician ___ General Labor ___ Rubber Turner _x__ Other (describe below) Sacrament/Intervention _x__ Active listening ___ Anointing ___ Yarsani ___ Bereavement ___ Communion ___ Nicole exploration ___ ___ Life review ___ Prayer ___ Reconciliation ___ Sacrament of Sick ___ Supportive presence ___ Wedding ___ Other (describe below) Pastoral Comments talked with patient around table in TCU
[2018-06-25 18:29] VITALS: BP 180/87; PULSE 89
[2018-06-25] MEDS: Acetaminophen 500 MG Tablet 1000 MG PO (18:30)
[2018-06-25 18:37] VITALS: TEMP 38.7
[2018-06-25] MEDS: MELATONIN 3 MG TABLET PO (20:26)
[2018-06-25] MEDS: Atorvastatin Calcium 40 MG Tablet PO (20:26)
--- NOTE | 2018-06-25 20:28 | NURSING ---
Pt took one sip of water before becoming agitated with this nurse for trying to get pt to drink. Pt educated on importance of maintaining hydration, especially when not feeling well. RN aware, will continue to offer fluids.
[2018-06-26] MEDS: Menthol/Lanolin/Calamine/Znox 113 GM Tube 1 APPLIC TOPICAL ×2 (05:32→19:44)
[2018-06-26 05:33] VITALS: PULSE 77
[2018-06-26] MEDS: Pantoprazole Sodium 40 MG Tablet PO (05:33)
[2018-06-26] MEDS: Metoprolol Tartrate 25 MG Tablet PO ×2 (05:33→16:56)
[2018-06-26] MEDS: Amiodarone 200 MG Tablet PO (05:33)
[2018-06-26] MEDS: Senna/Docusate Sodium 1 Tablet PO ×2 (05:33→16:55)
[2018-06-26] MEDS: Cefdinir 300 MG Capsule PO ×2 (05:33→16:55)
--- NOTE | 2018-06-26 05:59 | NURSING ---
Pt alert, pleasant this morning. Drank 160cc water with am meds. Repositioned for comfort, continuing to monitor.
[2018-06-26] MEDS: Aspirin 81 MG TAB.CHEW PO (08:01)
--- NOTE | 2018-06-26 12:57 | MDS.RN ---
Information for the mds was obtained from review of the clinical record, interview of resident, staff, and direct observation of resident's care.
--- NOTE | 2018-06-26 13:21 | MDS.RN ---
Pain interview for ja 06/27/18 completed.
[2018-06-26 15:49] VITALS: BP 91/55; PULSE 68; RESP 14; TEMP 37; O2SAT 93
[2018-06-26 16:56] VITALS: BP 91/55; PULSE 68
--- NOTE | 2018-06-26 17:04 | NURSING ---
IV discontinued at this time, Catheter intact, site intact and secured with gauze and tape. Isa MORALES aware
[2018-06-26] MEDS: MELATONIN 3 MG TABLET PO (19:43)
[2018-06-26] MEDS: Atorvastatin Calcium 40 MG Tablet PO (19:43)
[2018-06-26 19:57] VITALS: PULSE 66
[2018-06-26] MEDS: Acetaminophen 500 MG Tablet 1000 MG PO (22:31)
[2018-06-27] VITALS (7 sets, daily range): BP systolic 111–199; BP diastolic 58–95; PULSE 57–84; RESP 16–22; TEMP 36.9–38.2; O2SAT 90–91
[2018-06-27] MEDS: Amiodarone 200 MG Tablet PO (06:25)
[2018-06-27] MEDS: Senna/Docusate Sodium 1 Tablet PO ×2 (06:25→17:17)
[2018-06-27] MEDS: Polyethylene Glycol 3350 17 GM PACKET PO (06:25)
[2018-06-27] MEDS: Cefdinir 300 MG Capsule PO ×2 (06:26→17:17)
[2018-06-27] MEDS: Pantoprazole Sodium 40 MG Tablet PO (06:26)
[2018-06-27] MEDS: Menthol/Lanolin/Calamine/Znox 113 GM Tube 1 APPLIC TOPICAL ×2 (06:29→20:15)
[2018-06-27] MEDS: Aspirin 81 MG TAB.CHEW PO (07:55)
--- NOTE | 2018-06-27 09:11 | NURSING ---
Dr Junior updated on low bp 111/64 HR 57. Lopressor held. no new orders.
--- NOTE | 2018-06-27 13:20 | CASEMGMT ---
Addendum entered by Malorie Valdovinos 06/27/18 15:20: Reviewed and approved NECK BAND OPERATOR student MDS documentation. COLETTE Hood Original Note: Brief interview for mental status (BIMS) and mood (PHQ-9) completed on this day. BIMS score 01/15. PHQ-9 score 09/27. [facility]
[2018-06-27] MEDS: Metoprolol Tartrate 25 MG Tablet PO (17:17)
[2018-06-27] MEDS: Atorvastatin Calcium 40 MG Tablet PO (20:15)
[2018-06-27] MEDS: MELATONIN 3 MG TABLET PO (20:16)
[2018-06-27] MEDS: Acetaminophen 500 MG Tablet 1000 MG PO (20:22)
--- NOTE | 2018-06-27 21:00 | RAD_ITS ---
STUDY: X-RAY CHEST REASON FOR EXAM: Male, 72 years old. Fever TECHNIQUE: Frontal and lateral views COMPARISON: June 25, 2018 FINDINGS: Right venous port with tip in the proximal SVC level. The lungs are expanded. Persistent left retrocardiac infiltrate with slight interval increase. Normal size heart. Normal mediastinum and shreyas. Normal visualized pulmonary arteries. Normal visualized aortic arch and descending thoracic aorta. Degenerative changes of the thoracic spine. Normal visualized ribs, clavicles, and shoulders. There is no demonstrated abnormality of the visualized soft tissue structures of the upper abdomen. RAD/Chest PA and Lateral IMPRESSION: Persistent left retrocardiac infiltrate. Electronically Signed: Yariel Rios DO at 21:59 EST Tel [phone], Service support ,
--- NOTE | 2018-06-27 22:59 | NURSING ---
APPLICATIONS SALES REPRESENTATIVE reported to nurse pt shaky B/P 199/95 HR reg 80 oral temp 100.7 Resp 22 91% RA. Pt reported to be very weak and lethargic. Tylenol provided. Crackles noted posterior. Dr Junior aware. N.O. Stat CXR, resp panel, X1 Lopressor. B/P recheck for lopressor 122/65 held, HR 73 Resp 20 89% RA O2 applied 2L temp 98.9. Dr Junior notified N.O. D/C Cefdinir start Rocephin and Azithromycin X7 days. Will continue to monitor and asses.
[2018-06-28] MEDS: 0.9% NaCl IVPB Med Flush (250 mL) 15 ML IV (00:12)
[2018-06-28] MEDS: Ceftriaxone 1 GM/50 ML BAG IV ×2 (00:12→21:44)
[2018-06-28] MEDS: Menthol/Lanolin/Calamine/Znox 113 GM Tube 1 APPLIC TOPICAL ×2 (06:11→19:59)
[2018-06-28] MEDS: Amiodarone 200 MG Tablet PO (06:13)
[2018-06-28 06:14] VITALS: BP 120/70; PULSE 63
[2018-06-28] MEDS: Senna/Docusate Sodium 1 Tablet PO ×2 (06:14→17:54)
[2018-06-28] MEDS: Metoprolol Tartrate 25 MG Tablet PO ×2 (06:14→17:56)
[2018-06-28] MEDS: Pantoprazole Sodium 40 MG Tablet PO (06:14)
[2018-06-28] MEDS: Polyethylene Glycol 3350 17 GM PACKET PO (06:14)
--- NOTE | 2018-06-28 06:19 | NURSING ---
All care provide in patient room. Remains in precautions for pneumonia
--- NOTE | 2018-06-28 07:17 | NURSING ---
IV started by this nurse 20 gauge in LFA.
[2018-06-28 07:28] LABS: Absolute Lymphocyte Count 0.76 X10^3/ul (0.83-4.51); Absolute Neutrophil Count 5.9 X10^3/uL (2.0-7.7); Basophil# 0.02 X10^3/uL; Basophil% 0.2 % (0-1); Eosinophil# 0.32 X10^3/uL; Hematocrit 36.9 % (40-54); Lymphocyte # 0.76 X10^3/ul (4.0); Lymphocyte % 9.4 % (19-41); Mean Corp Hgb Conc 32.5 g/gl (32-36); Mean Corpuscular Hgb 33.3 pg (27.0-32.0); Mean Corpuscular Volume 102.5 fL (80-94); Mean Platelet Vol. 9.8 fl (6.2-12.0); Monocyte% 13.6 % (0-10); Neutrophil # 5.85 X10^3/uL (2.7-7.7); Neutrophil % 72.6 % (47-70); Platelet Count 169 K/mm3 (150-450); RBC Distribution Width CV 15.1 % (11.6-14.6); RBC Distribution Width SD 55.4 fl (35.1-43.9); White Blood Count 8.1 K/mm3 (4.4-11.0)
[2018-06-28 07:33] LABS: POSITIVE COUNT NO; POSITIVE DIFFERENTIAL NO; POSITIVE MORPHOLOGY NO
[2018-06-28] MEDS: Aspirin 81 MG TAB.CHEW PO (07:54)
--- NOTE | 2018-06-28 07:56 | NURSING ---
ALL CARE GIVEN IN PT ROOM DUE TO PT IN PRECAUTIONS FOR PNEUMONIA.
[2018-06-28 08:13] LABS: Anion Gap 9 (5-15); BUN 50 mg/dL (7-18); BUN/Creat Ratio 24.4 RATIO (10-20); Calcium,Total 8.5 mg/dL (8.5-10.1); Chloride 104 mmol/L (98-107); Creatinine, Serum 2.05 mg/dL (0.70-1.30); EST Glomerular Filtration Rate 34 mL/min (>60); Est Glom Filt Rate - Afr Amer 41 mL/min (>60); Estimated Creatinine Clearance 27.09 ml/min; Glucose 93 mg/dL (74-106); Potassium 4.3 mmol/L (3.5-5.1); Sodium Level 140 mmol/L (136-145)
[2018-06-28] MEDS: 0.9% NaCl Peripheral Flush Adult/Peds IV (11:18)
[2018-06-28] MEDS: 0.9% Normal Saline 1,000 ML 60 ML IV (11:23)
[2018-06-28 15:25] VITALS: BP 118/65; PULSE 60; RESP 18; TEMP 37.2; O2SAT 94
[2018-06-28 17:56] VITALS: BP 118/65; PULSE 60
[2018-06-28] MEDS: MELATONIN 3 MG TABLET PO (19:58)
[2018-06-28] MEDS: Atorvastatin Calcium 40 MG Tablet PO (19:59)
[2018-06-28 20:05] VITALS: PULSE 57; RESP 18; O2SAT 95
[2018-06-29] MEDS: Senna/Docusate Sodium 1 Tablet PO ×2 (06:21→17:51)
[2018-06-29] MEDS: Amiodarone 200 MG Tablet PO (06:21)
[2018-06-29] MEDS: Pantoprazole Sodium 40 MG Tablet PO (06:21)
[2018-06-29] MEDS: Bisacodyl 5 MG Tablet 10 MG PO (06:30)
[2018-06-29 06:32] VITALS: BP 147/70; PULSE 63
[2018-06-29] MEDS: Polyethylene Glycol 3350 17 GM PACKET PO (06:32)
[2018-06-29] MEDS: Metoprolol Tartrate 25 MG Tablet PO ×2 (06:32→17:51)
[2018-06-29] MEDS: 0.9% Normal Saline 1,000 ML 60 ML IV (07:27)
[2018-06-29] MEDS: Menthol/Lanolin/Calamine/Znox 113 GM Tube 1 APPLIC TOPICAL ×2 (07:29→20:46)
[2018-06-29] MEDS: Aspirin 81 MG TAB.CHEW PO (07:30)
--- NOTE | 2018-06-29 14:16 | NURSING ---
AT 1415 PT PULLED IV OUT. DRESSING APPLIED TO SITE. REPORTED TO CARMEN GONSALVES
[2018-06-29 15:45] VITALS: BP 146/67; PULSE 62; RESP 18; TEMP 36.6; O2SAT 92
[2018-06-29 17:51] VITALS: BP 146/67; PULSE 62
[2018-06-29] MEDS: Atorvastatin Calcium 40 MG Tablet PO (20:49)
[2018-06-29] MEDS: MELATONIN 3 MG TABLET PO (20:49)
[2018-06-29] MEDS: Ceftriaxone 1 GM/50 ML BAG IV (21:02)
[2018-06-29 22:22] VITALS: PULSE 63; RESP 18; O2SAT 96
[2018-06-30 05:19] VITALS: BP 118/52; PULSE 64
[2018-06-30 05:25] VITALS: BP 118/52; PULSE 64
[2018-06-30] MEDS: Metoprolol Tartrate 25 MG Tablet PO ×2 (05:25→18:15)
[2018-06-30] MEDS: Pantoprazole Sodium 40 MG Tablet PO (05:25)
[2018-06-30] MEDS: Amiodarone 200 MG Tablet PO (05:26)
[2018-06-30] MEDS: Menthol/Lanolin/Calamine/Znox 113 GM Tube 1 APPLIC TOPICAL ×2 (05:32→20:32)
[2018-06-30] MEDS: Aspirin 81 MG TAB.CHEW PO (08:24)
[2018-06-30] MEDS: 0.9% Normal Saline 1,000 ML 60 ML IV (09:13)
[2018-06-30 10:00] VITALS: PULSE 56; RESP 16; O2SAT 98
[2018-06-30 15:42] VITALS: BP 152/70; PULSE 68; RESP 16; TEMP 36.8; O2SAT 91
[2018-06-30 18:15] VITALS: BP 152/70; PULSE 68
[2018-06-30] MEDS: MELATONIN 3 MG TABLET PO (20:30)
[2018-06-30] MEDS: Atorvastatin Calcium 40 MG Tablet PO (20:30)
[2018-06-30] MEDS: Ceftriaxone 1 GM/50 ML BAG IV (21:58)
[2018-07-01 05:57] VITALS: BP 137/70; PULSE 60
[2018-07-01] MEDS: Metoprolol Tartrate 25 MG Tablet PO ×2 (05:57→18:19)
[2018-07-01] MEDS: Amiodarone 200 MG Tablet PO (05:57)
[2018-07-01] MEDS: Menthol/Lanolin/Calamine/Znox 113 GM Tube 1 APPLIC TOPICAL ×2 (05:57→21:16)
[2018-07-01] MEDS: Pantoprazole Sodium 40 MG Tablet PO (05:57)
[2018-07-01] MEDS: 0.9% Normal Saline 1,000 ML 60 ML IV ×3 (07:15→23:20)
[2018-07-01] MEDS: Acetaminophen 500 MG Tablet 1000 MG PO (08:22)
[2018-07-01] MEDS: Aspirin 81 MG TAB.CHEW PO (08:24)
[2018-07-01 12:45] VITALS: PULSE 54; RESP 18; O2SAT 96
[2018-07-01 15:35] VITALS: BP 93/47; PULSE 50; RESP 14; TEMP 36.9; O2SAT 92
[2018-07-01 18:19] VITALS: BP 148/71; PULSE 59
[2018-07-01] MEDS: Atorvastatin Calcium 40 MG Tablet PO (21:17)
[2018-07-01] MEDS: MELATONIN 3 MG TABLET PO (21:17)
[2018-07-01] MEDS: Ceftriaxone 1 GM/50 ML BAG IV (21:25)
[2018-07-01] MEDS: 0.9% NaCl Peripheral Flush Adult/Peds IV (23:20)
[2018-07-02 05:10] VITALS: BP 163/76; PULSE 56
[2018-07-02] MEDS: Metoprolol Tartrate 25 MG Tablet PO (05:10)
[2018-07-02] MEDS: Amiodarone 200 MG Tablet PO (05:10)
[2018-07-02] MEDS: Menthol/Lanolin/Calamine/Znox 113 GM Tube 1 APPLIC TOPICAL ×2 (05:10→20:58)
[2018-07-02] MEDS: Pantoprazole Sodium 40 MG Tablet PO (05:11)
[2018-07-02] MEDS: Aspirin 81 MG TAB.CHEW PO (08:55)
[2018-07-02 16:00] VITALS: BP 148/69; PULSE 53; RESP 16; TEMP 37.7; O2SAT 97
[2018-07-02 17:36] VITALS: BP 148/69; PULSE 51
[2018-07-02] MEDS: Atorvastatin Calcium 40 MG Tablet PO (20:58)
[2018-07-02] MEDS: MELATONIN 3 MG TABLET PO (20:58)
[2018-07-02] MEDS: 0.9% Normal Saline 1,000 ML 60 ML IV (20:58)
[2018-07-02] MEDS: Ceftriaxone 1 GM/50 ML BAG IV (21:03)
[2018-07-03] MEDS: Menthol/Lanolin/Calamine/Znox 113 GM Tube 1 APPLIC TOPICAL ×2 (05:14→20:53)
[2018-07-03] MEDS: Pantoprazole Sodium 40 MG Tablet PO (05:22)
[2018-07-03] MEDS: Aspirin 81 MG TAB.CHEW PO (10:45)
--- NOTE | 2018-07-03 13:46 | CASEMGMT ---
Social Work Spoke with resident and resident familyEliecer This high school social studies tutor communicating that discharge date has been set for 07/09/18 with recommendations for resident to have 24hr care and continued physical and occupational therapy. Resident family voicing that plan is for resident to return to home with 24hr care during the day and resident will be alone at night. This high school social studies tutor enforcing reason for the 24hr care and concerns of resident wondering outside of the home whether that would be a night or during the day. Eliecer voicing to understanding recommendations and to have a camera system set up with resident home and to not be concerned with resident being alone during the night. Team expressing multiple concerns with resident ever being alone. Eliecer voicing to want to see how things go at home. Eliecer is open to having physical and occupational therapy services set up within the home and requesting for home health care to be set up through [facility] ([facility] Eliecer reporting that resident has all needed durable medical equipment already set up within the home. Eliecer plans to provide transportation home for resident and is reporting that the home is fully wired and that Eliecer will be notified and aware of all of resident mobility within the home. [facility] This high school social studies tutor making referral for physical and occupational therapy. Order to be completed. Telephone call to Mini FLORES. This high school social studies tutor leaving voicemail with referral with concerns of resident being left alone within the home. Proposed discharge date: 07/09/18 PLAN: Discharge to home with home health care and 24hr care during the day per the family. Toby ALVARENGA, MARCELINO
[2018-07-03 16:00] VITALS: BP 163/86; PULSE 58; RESP 14; TEMP 37.2; O2SAT 95
[2018-07-03] MEDS: 0.9% Normal Saline 1,000 ML 60 ML IV (17:30)
[2018-07-03 17:34] VITALS: PULSE 66
[2018-07-03] MEDS: Metoprolol Tartrate 25 MG Tablet 12.5 MG PO (17:34)
[2018-07-03] MEDS: Atorvastatin Calcium 40 MG Tablet PO (20:53)
[2018-07-03] MEDS: MELATONIN 3 MG TABLET PO (20:53)
[2018-07-03] MEDS: Ceftriaxone 1 GM/50 ML BAG IV (21:03)
[2018-07-03] MEDS: 0.9% NaCl Peripheral Flush Adult/Peds IV (21:42)
--- NOTE | 2018-07-03 21:51 | DCINST_ITS ---
- Discharge Diagnoses Current Active Problems: Current Active and Chronic Problems Slurred speech (Acute) Vomiting (Acute) Gastrointestinal bleeding (Chronic) Left carotid artery stenosis (Chronic) Hypertension (Chronic) Hyperlipidemia (Chronic) Non-Hodgkin lymphoma (Chronic) AAA (abdominal aortic aneurysm) (Chronic) Osteoarthritis (Chronic) GERD (gastroesophageal reflux disease) (Chronic) Aortoiliac stenosis (Chronic) Atrial fibrillation (Chronic) Chronic kidney disease (Chronic) Anemia (Chronic) Encephalopathy (Acute) ICH (intracerebral hemorrhage) (Acute) SAH (subarachnoid hemorrhage) (Acute) IVH (intraventricular hemorrhage) (Acute) You will use the following diet at home:: No restrictions, Regular Your food should be the consistency of: Regular Your liquids should be the consistency of: Regular/Thin Discharge Activity: Return to Normal Activity, May Shower, Use Walker Weight Bearing Status: Weight bearing as tolerated Call your doctor if you observe: Fever of 101 or Higher, Inability to urinate, Inability to have a bowel movement, Shortness of breath, Chest pain, Uncontrolled pain Allergies/Adverse Reactions: Allergies No Known Allergies Allergy (Verified 06/13/18 23:53) Medications to take at Discharge Acetaminophen [Tylenol] 1,000 mg PO Q6H PRN tablet 07/03/18 Aspirin [Aspirin, Baby] 81 mg PO DAILY@0800 tab.chew 07/03/18 Atorvastatin Calcium [Lipitor] 40 mg PO HS #30 tab 07/03/18 Lorazepam [Ativan] 0.5 mg PO DAILY PRN PRN #30 tab 07/03/18 Melatonin 3 mg PO QHS tablet 07/03/18 Menthol/Lanolin/Calamine/Znox [Calmoseptine Ointment] 1 applic TOPICAL 0600,2200 tube 07/03/18 Metoprolol Tartrate [Lopressor (beta maegan)] 12.5 mg PO BID #30 tab 07/03/18 Pantoprazole Sodium [Protonix] 40 mg PO DAILY #30 tab 07/03/18 The following prescriptions were given: Atorvastatin Calcium [Lipitor] 40 mg PO HS #30 tab Lorazepam [Ativan] 0.5 mg PO DAILY PRN PRN #30 tab PRN Reason: AGITATION Pantoprazole Sodium [Protonix] 40 mg PO DAILY #30 tab Metoprolol Tartrate [Lopressor (beta maegan)] 12.5 mg PO BID #30 tab Primary Care Physician: Diego Bridges MD [Primary Care Provider] - Please follow up with your Primary Care Physician in: 1 week. Test Results: Test results from this visit will be discussed in further detail at your follow- up appointment, if applicable. Please Follow Up With: Diego Bridges MD When: after d/c from TCU Please Follow Up With: Armando Bernal When: In 6 weeks Proposed Discharge Date: 06/08/18
--- NOTE | 2018-07-03 21:52 | PCM.DC.SUM ---
Discharge Date and Diagnosis - Problem List Patient Problems: Active and Suspected Problems Slurred speech (Acute) Vomiting (Acute) Encephalopathy (Acute) ICH (intracerebral hemorrhage) (Acute) SAH (subarachnoid hemorrhage) (Acute) IVH (intraventricular hemorrhage) (Acute) Date of Admission: 06/13/18 Date of Discharge: 07/09/18 - Primary Discharge Diagnosis Active and Suspected Problems Slurred speech (Acute) Vomiting (Acute) Encephalopathy (Acute) ICH (intracerebral hemorrhage) (Acute) SAH (subarachnoid hemorrhage) (Acute) IVH (intraventricular hemorrhage) (Acute) - Secondary Discharge Diagnosis Chronic Problems Gastrointestinal bleeding (Chronic) Left carotid artery stenosis (Chronic) Hypertension (Chronic) Hyperlipidemia (Chronic) Non-Hodgkin lymphoma (Chronic) AAA (abdominal aortic aneurysm) (Chronic) Osteoarthritis (Chronic) GERD (gastroesophageal reflux disease) (Chronic) Aortoiliac stenosis (Chronic) Atrial fibrillation (Chronic) Chronic kidney disease (Chronic) Anemia (Chronic) Hospital Course and Treatment Imaging Results: 06/13/18 23:34 Diet: Cardiac/Low Cholesterol Food consistency:: Puree Liquid Consistency:: Regular/Thin Dietary Modifications:: Pureed Diet Diet Comments: DIRECT SUPERVISION Clinical Impression(s) from Imaging Studies Chest X-Ray 06/27/18 21:00 IMPRESSION: Persistent left retrocardiac infiltrate. Electronically Signed: Yariel Rios DO at 21:59 EST Tel [phone], Service support , Operations: None Procedures: None Summary of Care Provided: The patient is a 72 year old Male with below past medical history hospitalized for intracranial hemorrhage, subarachnoid hemorrhage, interventricular hemorrhage, admitted to TCU with debility, here for rehabilitation, strengthening, prior to disposition determination. 06/27/2018 Resident treated for aspiration pneumonia with IV Ceftriaxone, Flagyl, improved. Discharge home with Home Health Care, and 24 hour care during the day per family. Patient Problems: Active and Suspected Problems Slurred speech (Acute) Vomiting (Acute) Encephalopathy (Acute) ICH (intracerebral hemorrhage) (Acute) SAH (subarachnoid hemorrhage) (Acute) IVH (intraventricular hemorrhage) (Acute) - Physical Exam Vital Signs Temp Pulse Resp BP Pulse Ox 98.9 F 66 14 163/86 H 95 07/03/18 16:00 07/03/18 17:34 07/03/18 16:00 07/03/18 16:00 07/03/18 16:00 Oxygen Flow Rate (L/min) 2 Oxygen Delivery Method Room Air Weight: 62.171 kg Body Mass Index (BMI) 25.8 Intake and Output for Last 24 Hours 07/01/18 07/02/18 07/03/18 23:59 23:59 23:59 Intake Total 280 / 280 120 / 120 871 / 871 Balance 280 / 280 120 / 120 871 / 871 Discharge Diet: No Restrictions Discharge Activity: Return to Normal Activity, May Shower, Use Walker Weight Bearing Status: Weight bearing as tolerated Call your doctor if you observe: Fever of 101 or Higher, Inability to urinate, Inability to have a bowel movement, Shortness of breath, Chest pain, Uncontrolled pain Home Medications: Medications to take at Discharge Acetaminophen [Tylenol] 1,000 mg PO Q6H PRN tablet 07/03/18 Aspirin [Aspirin, Baby] 81 mg PO DAILY@0800 tab.chew 07/03/18 Atorvastatin Calcium [Lipitor] 40 mg PO HS #30 tab 07/03/18 Lorazepam [Ativan] 0.5 mg PO DAILY PRN PRN #30 tab 07/03/18 Melatonin 3 mg PO QHS tablet 07/03/18 Menthol/Lanolin/Calamine/Znox [Calmoseptine Ointment] 1 applic TOPICAL 0600,2200 tube 07/03/18 Metoprolol Tartrate [Lopressor (beta maegan)] 12.5 mg PO BID #30 tab 07/03/18 Pantoprazole Sodium [Protonix] 40 mg PO DAILY #30 tab 07/03/18 Following Prescrptions Were Given to Patient: Atorvastatin Calcium [Lipitor] 40 mg PO HS #30 tab Lorazepam [Ativan] 0.5 mg PO DAILY PRN PRN #30 tab PRN Reason: AGITATION Pantoprazole Sodium [Protonix] 40 mg PO DAILY #30 tab Metoprolol Tartrate [Lopressor (beta maegan)] 12.5 mg PO BID #30 tab Primary Care Physician: Diego Bridges MD [Primary Care Provider] - Please follow up with your Primary Care Physician in: 1 week. Please Follow Up With: Diego Bridges MD When: after d/c from TCU Please Follow Up With: Armando Bernal When: In 6 weeks Disposition: Home with Home Health Minutes spent on discharge:: 35 Patient Condition:: Stable Medical Necessity - Tobacco Use Smoking Status: Current every day smoker Tobacco Use: Cigarettes Meaningful Use Info Meaningful Use Diagnoses (Choose all that apply): None applicable
--- NOTE | 2018-07-03 21:55 | HHNOTE_ITS ---
Home Health Note - Plan Overview of reason of hospitalization: The patient is a 72 year old Male with below past medical history hospitalized for intracranial hemorrhage, subarachnoid hemorrhage, interventricular hemorrhage, admitted to TCU with debility, here for rehabilitation, strengthening, prior to disposition determination. 06/27/2018 Resident treated for aspiration pneumonia with IV Ceftriaxone, Flagyl, improved. Discharge home with Home Health Care, and 24 hour care during the day per palak spence. Problems: Patient was seen for Slurred speech (Acute) Vomiting (Acute) Gastrointestinal bleeding (Chronic) Left carotid artery stenosis (Chronic) Hypertension (Chronic) Hyperlipidemia (Chronic) Non-Hodgkin lymphoma (Chronic) AAA (abdominal aortic aneurysm) (Chronic) Osteoarthritis (Chronic) GERD (gastroesophageal reflux disease) (Chronic) Aortoiliac stenosis (Chronic) Atrial fibrillation (Chronic) Chronic kidney disease (Chronic) Anemia (Chronic) Encephalopathy (Acute) ICH (intracerebral hemorrhage) (Acute) SAH (subarachnoid hemorrhage) (Acute) IVH (intraventricular hemorrhage) (Acute) Complete List of Medical Problems Slurred speech (Acute) Vomiting (Acute) Gastrointestinal bleeding (Chronic) Left carotid artery stenosis (Chronic) Hypertension (Chronic) Hyperlipidemia (Chronic) Non-Hodgkin lymphoma (Chronic) AAA (abdominal aortic aneurysm) (Chronic) Osteoarthritis (Chronic) GERD (gastroesophageal reflux disease) (Chronic) Aortoiliac stenosis (Chronic) Atrial fibrillation (Chronic) Chronic kidney disease (Chronic) Anemia (Chronic) Encephalopathy (Acute) ICH (intracerebral hemorrhage) (Acute) SAH (subarachnoid hemorrhage) (Acute) IVH (intraventricular hemorrhage) (Acute) - Requirements and Reasons Disciplines Needed/Ordered: Physical Therapy Reason for Disciplines: Gait Training, Stair Training, Fall Prevention, Home Safety/Equipment Instruction, Balance and/or Posture Training, Transfer Training Related To: Change in Medical Treatment Plan, Physical Impairments, Unsteady Gait/Balance, Fall Risk Patient is unable to leave the home: Without Aid of Supportive Devices (crutches, cane, wheelchair, walker), Without the assistance of another person - Additional Disciplines Additional Disciplines Needed/Ordered: Occupational Therapy
[2018-07-03 23:09] VITALS: PULSE 88; RESP 18; O2SAT 96
[2018-07-04] MEDS: Menthol/Lanolin/Calamine/Znox 113 GM Tube 1 APPLIC TOPICAL ×2 (05:41→21:21)
[2018-07-04 05:42] VITALS: BP 157/75; PULSE 58
[2018-07-04] MEDS: Polyethylene Glycol 3350 17 GM PACKET PO (05:42)
[2018-07-04] MEDS: Pantoprazole Sodium 40 MG Tablet PO (05:42)
[2018-07-04] MEDS: Metoprolol Tartrate 25 MG Tablet 12.5 MG PO ×2 (05:42→18:06)
[2018-07-04] MEDS: Senna/Docusate Sodium 1 Tablet PO ×2 (05:44→18:06)
[2018-07-04] MEDS: Aspirin 81 MG TAB.CHEW PO (08:48)
[2018-07-04] MEDS: 0.9% Normal Saline 1,000 ML 60 ML IV (11:28)
[2018-07-04 13:15] VITALS: PULSE 50; RESP 16; O2SAT 97
--- NOTE | 2018-07-04 15:22 | CASEMGMT ---
Brief interview for mental status (BIMS) and resident mood interview (PHQ-9) completed on this day. BIMS score 01/15. PHQ-9 score 09/27
[2018-07-04 15:48] VITALS: BP 149/74; PULSE 56; RESP 16; TEMP 37; O2SAT 93
[2018-07-04 18:06] VITALS: BP 149/74; PULSE 58
[2018-07-04 18:23] VITALS: PULSE 58
[2018-07-04] MEDS: Ceftriaxone 1 GM/50 ML BAG IV (21:05)
[2018-07-04] MEDS: MELATONIN 3 MG TABLET PO (21:22)
[2018-07-04] MEDS: Atorvastatin Calcium 40 MG Tablet PO (21:22)
[2018-07-05] MEDS: Menthol/Lanolin/Calamine/Znox 113 GM Tube 1 APPLIC TOPICAL ×2 (05:37→20:15)
[2018-07-05] MEDS: Pantoprazole Sodium 40 MG Tablet PO (05:38)
[2018-07-05 05:41] VITALS: BP 160/88; PULSE 90
[2018-07-05] MEDS: Metoprolol Tartrate 25 MG Tablet 12.5 MG PO ×2 (05:41→17:03)
[2018-07-05 07:44] LABS: Absolute Neutrophil Count 7.6 X10^3/uL (2.0-7.7); Basophil# 0.04 X10^3/uL; Basophil% 0.4 % (0-1); Eosinophil# 0.15 X10^3/uL; Eosinophils% 1.6 % (0-5); Hematocrit 31.4 % (40-54); Hemoglobin 10.1 g/dl (13.0-16.5); Lymphocyte % 7.3 % (19-41); Mean Corp Hgb Conc 32.2 g/gl (32-36); Mean Corpuscular Hgb 32.9 pg (27.0-32.0); Mean Corpuscular Volume 102.3 fL (80-94); Mean Platelet Vol. 10.2 fl (6.2-12.0); Monocyte# 1.08 X10^3/uL; Monocyte% 11.3 % (0-10); Neutrophil # 7.57 X10^3/uL (2.7-7.7); Neutrophil % 78.9 % (47-70); Platelet Count 207 K/mm3 (150-450); RBC Distribution Width CV 14.6 % (11.6-14.6); RBC Distribution Width SD 50.8 fl (35.1-43.9); Red Blood Count 3.07 M/mm3 (4.6-6.2); White Blood Count 9.6 K/mm3 (4.4-11.0)
[2018-07-05 07:47] LABS: POSITIVE COUNT NO; POSITIVE DIFFERENTIAL NO; POSITIVE MORPHOLOGY NO
[2018-07-05 08:20] LABS: Anion Gap 8 (5-15); BUN 9 mg/dL (7-18); BUN/Creat Ratio 9.6 RATIO (10-20); Calcium,Total 7.8 mg/dL (8.5-10.1); Chloride 115 mmol/L (98-107); Creatinine, Serum 0.93 mg/dL (0.70-1.30); EST Glomerular Filtration Rate 84 mL/min (>60); Est Glom Filt Rate - Afr Amer 102 mL/min (>60); Estimated Creatinine Clearance 61.28 ml/min; Glucose 104 mg/dL (74-106); Potassium 3.9 mmol/L (3.5-5.1); Sodium Level 147 mmol/L (136-145)
[2018-07-05] MEDS: 0.9% Normal Saline 1,000 ML 60 ML IV (10:08)
[2018-07-05] MEDS: Aspirin 81 MG TAB.CHEW PO (10:14)
[2018-07-05 16:00] VITALS: BP 183/80; PULSE 51; RESP 18; TEMP 36.3; O2SAT 94
[2018-07-05] MEDS: Senna/Docusate Sodium 1 Tablet PO (17:02)
[2018-07-05 17:03] VITALS: BP 183/80; PULSE 51
[2018-07-05] MEDS: MELATONIN 3 MG TABLET PO (20:16)
[2018-07-05] MEDS: Atorvastatin Calcium 40 MG Tablet PO (20:16)
[2018-07-05 20:20] VITALS: PULSE 67; O2SAT 93
[2018-07-06] MEDS: 0.9% Normal Saline 1,000 ML 60 ML IV ×2 (02:54→19:17)
[2018-07-06 05:52] VITALS: BP 153/79; PULSE 55
[2018-07-06] MEDS: Menthol/Lanolin/Calamine/Znox 113 GM Tube 1 APPLIC TOPICAL ×2 (05:52→20:52)
[2018-07-06] MEDS: Senna/Docusate Sodium 1 Tablet PO ×2 (05:52→16:48)
[2018-07-06] MEDS: Metoprolol Tartrate 25 MG Tablet 12.5 MG PO ×2 (05:52→16:44)
[2018-07-06] MEDS: Pantoprazole Sodium 40 MG Tablet PO (05:52)
[2018-07-06] MEDS: Aspirin 81 MG TAB.CHEW PO (09:47)
[2018-07-06 15:41] VITALS: BP 170/76; PULSE 54; RESP 16; TEMP 36.7; O2SAT 95
[2018-07-06 16:44] VITALS: BP 170/76; PULSE 54
--- NOTE | 2018-07-06 20:11 | NURSING ---
Pt's IV infiltrated this evening. Dr Junior aware. N.O. to DC IVF.
[2018-07-06] MEDS: Atorvastatin Calcium 40 MG Tablet PO (20:53)
[2018-07-06] MEDS: MELATONIN 3 MG TABLET PO (20:53)
[2018-07-06 20:55] VITALS: PULSE 53; O2SAT 93
[2018-07-07] MEDS: Menthol/Lanolin/Calamine/Znox 113 GM Tube 1 APPLIC TOPICAL ×2 (05:43→20:57)
[2018-07-07 05:44] VITALS: BP 185/80; PULSE 51
[2018-07-07] MEDS: Senna/Docusate Sodium 1 Tablet PO ×2 (05:44→17:43)
[2018-07-07] MEDS: Pantoprazole Sodium 40 MG Tablet PO (05:44)
[2018-07-07] MEDS: Metoprolol Tartrate 25 MG Tablet 12.5 MG PO ×2 (05:44→17:45)
[2018-07-07] MEDS: Aspirin 81 MG TAB.CHEW PO (07:54)
[2018-07-07 10:00] VITALS: PULSE 52; RESP 18; O2SAT 94
--- NOTE | 2018-07-07 13:15 | CASEMGMT ---
Reviewed and approved UX DEVELOPER DESIGNER student MDS documentation. Toby ALVARENGA, MARCELINO
[2018-07-07 15:22] VITALS: BP 151/70; PULSE 53; RESP 16; TEMP 36.7; O2SAT 97
[2018-07-07 17:45] VITALS: BP 151/70; PULSE 67
[2018-07-07 17:46] VITALS: PULSE 67
[2018-07-07] MEDS: Atorvastatin Calcium 40 MG Tablet PO (20:56)
[2018-07-07] MEDS: MELATONIN 3 MG TABLET PO (20:56)
[2018-07-08] MEDS: Menthol/Lanolin/Calamine/Znox 113 GM Tube 1 APPLIC TOPICAL ×2 (05:27→20:33)
[2018-07-08] MEDS: Pantoprazole Sodium 40 MG Tablet PO (05:28)
[2018-07-08] MEDS: Senna/Docusate Sodium 1 Tablet PO ×2 (05:28→17:29)
[2018-07-08 07:02] VITALS: BP 161/79; PULSE 55
[2018-07-08 07:03] VITALS: BP 166/76; PULSE 52
--- NOTE | 2018-07-08 07:37 | MDS.RN ---
Information for the mds was obtained from review of the clinical record, interview of resident, staff, and direct observation of resident's care.
[2018-07-08] MEDS: Aspirin 81 MG TAB.CHEW PO (07:53)
[2018-07-08 08:49] VITALS: BP 166/76; PULSE 52
[2018-07-08] MEDS: Metoprolol Tartrate 25 MG Tablet 12.5 MG PO ×2 (08:49→17:29)
[2018-07-08 10:00] VITALS: RESP 16; O2SAT 94
[2018-07-08 15:40] VITALS: BP 173/77; PULSE 49; RESP 18; TEMP 36.9; O2SAT 95
[2018-07-08 17:29] VITALS: BP 173/77; PULSE 56
[2018-07-08] MEDS: MELATONIN 3 MG TABLET PO (20:33)
[2018-07-08] MEDS: Atorvastatin Calcium 40 MG Tablet PO (20:33)
[2018-07-09] MEDS: Senna/Docusate Sodium 1 Tablet PO (04:52)
[2018-07-09] MEDS: Polyethylene Glycol 3350 17 GM PACKET PO (04:52)
[2018-07-09] MEDS: Pantoprazole Sodium 40 MG Tablet PO (04:52)
[2018-07-09] MEDS: Menthol/Lanolin/Calamine/Znox 113 GM Tube 1 APPLIC TOPICAL (05:00)
[2018-07-09 05:04] VITALS: BP 178/81; PULSE 58
[2018-07-09] MEDS: Metoprolol Tartrate 25 MG Tablet 12.5 MG PO (05:04)
[2018-07-09] MEDS: Aspirin 81 MG TAB.CHEW PO (08:41)
[2018-07-09 14:11] VITALS: BP 156/74; PULSE 50; RESP 16; TEMP 37.1; O2SAT 95
== END 2018-07-09 14:15 | disposition home health service (06) | DRG 947 ==
PROVIDERS: Admitting Provider Family Medicine Geriatric Medicine; Family Provider Family Medicine; PCP Family Medicine; Visit Provider Family Medicine Geriatric Medicine
DX: R53.81 Other malaise (principal); J69.0 Pneumonitis due to inhalation of food and vomit; C85.90 Non-Hodgkin lymphoma, unspecified, unspecified site; I69.228 Other speech and language deficits following other nontraumatic intracranial hemorrhage; E78.5 Hyperlipidemia, unspecified; M19.90 Unspecified osteoarthritis, unspecified site; K21.9 Gastro-esophageal reflux disease without esophagitis; I48.2 Chronic atrial fibrillation; I12.9 Hypertensive chronic kidney disease with stage 1 through stage 4 chronic kidney disease, or unspecified chronic kidney disease; N18.9 Chronic kidney disease, unspecified; F17.210 Nicotine dependence, cigarettes, uncomplicated; B37.9 Candidiasis, unspecified; Y95 Nosocomial condition; Z23 Encounter for immunization; F41.9 Anxiety disorder, unspecified; Z86.2 Personal history of diseases of the blood and blood-forming organs and certain disorders involving the immune mechanism
CPT/HCPCS: 36415; 71046; 80048; 85025; 87633; 90732; 92507; 92523; 92526; 92610; 97110; 97116; 97162; 97166; 97530; 97535; 97802; 99251; G0009; J7030; J7050; A4216; G0463